=== PATIENT | male | born 1975 | race Caucasian/White ===

== ENCOUNTER → 2016-09-22 | Outpatient (CLI) | payer OTHER ==
--- NOTE | 2016-09-22 12:59 | EST ---
DATE OF SERVICE: 09/22/2016 AGE: 41Y SEX: M HT: 71" WT: 200 lbs. Protocol Ted: X Other: Stress Stage: 2 Dur. of Exercise: 8:00 *Heart Rate Blood Pressure *Rest: 83 Rest: 129/100 * *Max. Achieved: 155 Maximum BP: 201/84 85% PMHR: 150 100% PMHR: 177 *METS: 9.7 INDICATIONS: Palpitations MEDICATIONS: Heart rate meds, aspirin, cholesterol meds. Mr. Crenshaw is a 41-year-old gentleman being evaluated for symptoms of chest pain and palpitations. Patient also has hypertension and hypercholesterolemia. Baseline EKG showed sinus rhythm with normal KS interval and QRS duration. Blood pressure at rest is 129/100 with pulse of 83. Patient walked on the Ted protocol for about 8 minutes, achieving a maximum heart rate of 155 with a blood pressure of 201/84. EKGs taken during and after the exercise did not reveal any significant changes from the baseline. FINAL IMPRESSION: 1. Negative stress test. 2. Good exercise capacity. 3. Patient did not experience any chest pain. 4. No arrhythmias were detected.
== END | disposition home or self-care (01) ==
LOC: RADNMMAIN 10:38
PROVIDERS: ATTEND Internal Medicine
DX: I10 Essential (primary) hypertension (principal); R00.2 Palpitations; Z88.0 Allergy status to penicillin
CPT/HCPCS: 93017

== ENCOUNTER 2020-05-10 05:47 | Emergency (ER) | payer OTHER ==
[2020-05-10 05:52] VITALS: TEMP 97.8
[2020-05-10] MEDS: SODIUM CHLORIDE 0.9% 1,000 ML IV STA (06:11)
[2020-05-10] MEDS: SODIUM CHLORIDE 0.9% 500 ML 500 ML IV STA (06:11)
[2020-05-10 06:15] LABS: Basophils % (A) 0 %; Eosinophils # (A) 0.1 k/uL (0-0.7); Eosinophils % (A) 1 %; HCT 48.1 % (39.0-53.0); HGB 16.8 gm/dL (13.0-17.5); Lymphocytes # (A) 1.4 k/uL (1.0-4.8); Lymphocytes % (A) 10 %; MCH 32.3 pg (25.0-35.0); MCHC 34.9 g/dL (31.0-37.0); MCV 92.7 fL (80.0-100.0); Mean Platelet Volume 7.4; Monocytes # (A) 0.5 k/uL (0-1.0); Monocytes % (A) 3 %; Neutrophils # (A) 12.3 k/uL (1.3-7.7); Neutrophils % (A) 85 %; Platelet Count 234 k/uL (150-450); RBC 5.19 m/uL (4.30-5.90); RDW 13.1 % (11.5-15.5); WBC 14.4 k/uL (3.8-10.6)
[2020-05-10] MEDS: ONDANSETRON 4 MG/2 ML VIAL IVP STA (06:22)
[2020-05-10] MEDS: KETOROLAC 15 MG/ML 1 ML VIAL IVP STA (06:22)
[2020-05-10 06:26] LABS: ALT 75 U/L (4-49); AST 34 U/L (17-59); African American GFR (CKD) >90 (>60 ml/min/1.73 sqM); Albumin 4.6 g/dL (3.5-5.0); Alkaline Phosphatase 69 U/L (38-126); Anion Gap 8 mmol/L; Blood Urea Nitrogen 12 mg/dL (9-20); Calcium 9.4 mg/dL (8.4-10.2); Carbon Dioxide 24 mmol/L (22-30); Chloride 107 mmol/L (98-107); Glucose 180 mg/dL (74-99); Lipase 47 U/L (23-300); Non-African American GFR(CKD) 84 (>60 ml/min/1.73 sqM); Potassium 4.3 mmol/L (3.5-5.1); Sodium 139 mmol/L (137-145); Total Bilirubin 0.6 mg/dL (0.2-1.3); Total Protein 7.4 g/dL (6.3-8.2)
--- NOTE | 2020-05-10 06:30 | XR ---
EXAMINATION TYPE: XR KUB DATE OF EXAM: 05/10/2020 6:19 AM CLINICAL HISTORY: History of kidney stones with right flank pain and nausea. TECHNIQUE: Two Upright KUB images of the abdomen are obtained. COMPARISON: None. FINDINGS: Some paucity of bowel gas. Scattered gas seen in nondistended bowel loops. There is no visc eromegaly, pneumoperitoneum, or abnormal calcification appreciated. The lung bases are clear. Slight underlying scoliotic curvature or positioning. IMPRESSION: Overall nonobstructive bowel gas pattern. No definite nephrolithiasis.
--- NOTE | 2020-05-10 06:35 | ED ---
Abdominal Pain HPI - General Source: patient, RN notes reviewed Mode of arrival: ambulatory Limitations: no limitations <Harpreet Freeman - Last Filed: 05/10/20 08:08> <Hillary Gallagher - Last Filed: 05/11/20 13:19> - General Chief Complaint: Abdominal Pain Stated Complaint: R flank pain Time Seen by Provider: 05/10/20 05:56 - History of Present Illness Initial Comments: This a 45-year-old male presents emergency Department for abdominal pain. Patient states started initially morning. Patient states that he woke up with lower abdominal pain felt like he had have a bowel movement. Patient's is very crampy in nature. Patient states he does feel constipated this time. Patient now is localized to right-sided flank pain. Patient has had some chills no fever. Patient has ongoing nausea with no significant vomiting dysuria, hematuria or frequency. Patient has no chest pain or shortness breath. No prior abdominal surgeries. (Harpreet Freeman) - Related Data Previous Rx's Medication Instructions Recorded Ketorolac [Toradol] 10 mg PO Q8HR #15 tab 05/10/20 Ondansetron Odt [Zofran Odt] 4 mg PO Q8HR PRN #10 tab 05/10/20 Tamsulosin [Flomax] 0.4 mg PO DAILY #7 cap 05/10/20 Allergies Allergy/AdvReac Type Severity Reaction Status Date / Time Penicillins Allergy Rash/Hives Verified 05/10/20 05:52 Review of Systems ROS Other: All systems not noted in ROS Statement are negative. <Harpreet Freeman - Last Filed: 05/10/20 08:08> ROS Other: All systems not noted in ROS Statement are negative. <Hillary Gallagher - Last Filed: 05/11/20 13:19> ROS Statement: Those systems with pertinent positive or pertinent negative responses have been documented in the HPI. Past Medical History Past Medical History: Hypertension Additional Past Medical History / Comment(s): kidney stones History of Any Multi-Drug Resistant Organisms: None Reported Past Surgical History: Appendectomy Past Psychological History: No Psychological Hx Reported Smoking Status: Never smoker Past Alcohol Use History: None Reported Past Drug Use History: None Reported <Harpreet Freeman - Last Filed: 05/10/20 08:08> General Exam Limitations: no limitations General appearance: alert, in no apparent distress Head exam: Present: atraumatic, normocephalic, normal inspection Eye exam: Present: normal appearance, PERRL, EOMI. Absent: scleral icterus, conjunctival injection, periorbital swelling ENT exam: Present: normal exam, normal oropharynx, mucous membranes moist Neck exam: Present: normal inspection, full ROM. Absent: tenderness, meningismus, lymphadenopathy Respiratory exam: Present: normal lung sounds bilaterally. Absent: respiratory distress, wheezes, rales, rhonchi, stridor Cardiovascular Exam: Present: regular rate, normal rhythm, normal heart sounds. Absent: systolic murmur, diastolic murmur, rubs, gallop, clicks GI/Abdominal exam: Present: soft, normal bowel sounds. Absent: distended, tenderness, guarding, rebound, rigid Back exam: Present: CVA tenderness (R). Absent: CVA tenderness (L) Neurological exam: Present: alert, oriented X3 Skin exam: Present: warm, dry, intact, normal color. Absent: rash <Harpreet Freeman - Last Filed: 05/10/20 08:08> Course Vital Signs 05/10/20 05/10/20 05:47 07:41 Temperature 97.8 F Pulse Rate 61 66 Respiratory 22 18 Rate Blood Pressure 190/98 174/84 O2 Sat by Pulse 97 99 Oximetry Medical Decision Making - Lab Data Result diagrams: 05/10/20 06:10 05/10/20 06:10 <Harpreet Freeman - Last Filed: 05/10/20 08:08> - Lab Data Result diagrams: 05/10/20 06:10 05/10/20 06:10 <Hillary Gallagher - Last Filed: 05/11/20 13:19> - Medical Decision Making 45-year-old male presented for flank pain, abdominal pain CT shows evidence of proximal 4 mm right ureteral calculi stone. Patient has no signs of infection in his urinalysis. Patient pain is improved patient was well-hydrated. Patient we discharged in stable condition return parameters were discussed. (Harpreet Freeman) I was available for consultation in the emergency department. The history and physical exam were done by the midlevel provider. I was consulted for this patients care. I reviewed the case with the midlevel provider and based on their presentation of the patient, I agree with the assessment, medical decision making and plan of care as documented. Chart was dictated using [employer] dictation software. Attempts were made to correct any dictation errors however some typographical errors may persist. Patient was seen during a national state of emergency due to the Covid-19 pandemic. (Hillary Gallagher) - Lab Data Lab Results 05/10/20 05/10/20 05/10/20 Range/Units 06:10 06:10 07:47 WBC 14.4 H (3.8-10.6) k/uL RBC 5.19 (4.30-5.90) m/uL Hgb 16.8 (13.0-17.5) gm/dL Hct 48.1 (39.0-53.0) % MCV 92.7 (80.0-100.0) fL MCH 32.3 (25.0-35.0) pg MCHC 34.9 (31.0-37.0) g/dL RDW 13.1 (11.5-15.5) % Plt Count 234 (150-450) k/uL MPV 7.4 Neutrophils % 85 % Lymphocytes % 10 % Monocytes % 3 % Eosinophils % 1 % Basophils % 0 % Neutrophils # 12.3 H (1.3-7.7) k/uL Lymphocytes # 1.4 (1.0-4.8) k/uL Monocytes # 0.5 (0-1.0) k/uL Eosinophils # 0.1 (0-0.7) k/uL Basophils # 0.0 (0-0.2) k/uL Sodium 139 (137-145) mmol/L Potassium 4.3 (3.5-5.1) mmol/L Chloride 107 (98-107) mmol/L Carbon Dioxide 24 (22-30) mmol/L Anion Gap 8 mmol/L BUN 12 (9-20) mg/dL Creatinine 1.06 (0.66-1.25) mg/dL Est GFR (CKD-EPI)AfAm >90 (>60 ml/min/1.73 sqM) Est GFR (CKD-EPI)NonAf 84 (>60 ml/min/1.73 sqM) Glucose 180 H (74-99) mg/dL Calcium 9.4 (8.4-10.2) mg/dL Total Bilirubin 0.6 (0.2-1.3) mg/dL AST 34 (17-59) U/L ALT 75 H (4-49) U/L Alkaline Phosphatase 69 (38-126) U/L Total Protein 7.4 (6.3-8.2) g/dL Albumin 4.6 (3.5-5.0) g/dL Lipase 47 (23-300) U/L Urine Color Yellow Urine Appearance Clear (Clear) Urine pH 5.5 (5.0-8.0) Ur Specific [place] 1.032 (1.001-1.035) Urine Protein Negative (Negative) Urine Glucose (UA) Negative (Negative) Urine Ketones Negative (Negative) Urine Blood Negative (Negative) Urine Nitrite Negative (Negative) Urine Bilirubin Negative (Negative) Urine Urobilinogen <2.0 (<2.0) mg/dL Ur Leukocyte Esterase Negative (Negative) Disposition Is patient prescribed a controlled substance at d/c from ED?: No <Harpreet Freeman M - Last Filed: 05/10/20 08:08> <Hillary Gallagher - Last Filed: 05/11/20 13:19> Clinical Impression: Right ureteral calculus Disposition: HOME SELF-CARE Condition: Stable Instructions (If sedation given, give patient instructions): Kidney Stones (ED) Additional Instructions: Please return to the Emergency Department if symptoms worsen or any other concerns. Prescriptions: Tamsulosin [Flomax] 0.4 mg PO DAILY #7 cap Ketorolac [Toradol] 10 mg PO Q8HR #15 tab Ondansetron Odt [Zofran Odt] 4 mg PO Q8HR PRN #10 tab PRN Reason: Nausea Referrals: Juana Son MD [Primary Care Provider] - 1-2 days Camilo Munoz MD [STAFF PHYSICIAN] - 1-2 days
[2020-05-10 07:43] VITALS: BP 174/84; PULSE 66; RESP 18
[2020-05-10] MEDS: HYDROmorphone 0.5 MG/0.5 ML SYRINGE IVP STA (07:44)
--- NOTE | 2020-05-10 07:46 | CT ---
EXAMINATION TYPE: CT abdomen pelvis w con DATE OF EXAM: 05/10/2020 COMPARISON: Abdominal x-ray earlier today HISTORY: Right sided flank pain, history of kidney stones. CT DLP: 1680.4 mGycm, Automated Exposure Control for Dose Reduction was Utilized. CONTRAST: CT scan of the abdomen and pelvis is performed without oral but with IV Contrast, patient injected wi th 100 mL of Isovue 300. FINDINGS: LUNG BASES: Some dependent atelectasis. LIVER/GB: Visualized liver is low dense consistent with diffuse fatty infiltration. PANCREAS: No significant abnormality is seen. SPLEEN: No significant abnormality is seen. ADRENALS: No significant abnormality is seen. KIDNEYS: There are symmetric cortical medullary uptake but delayed excretion from the right kidney. T here are 2 left-sided renal calculi measuring under 3 mm in size no left-sided hydronephrosis. There is single 2 to 3 mm calculus right kidney coronal image 52 mid to lower pole level anteriorly. There is mild right-sided pyelocaliectasis due to obstructing 4 mm proximal right ureter calculus axial dereje ge 51. No intraluminal calculi in the bladder. [id number] surrounding perinephric fluid is nons pecific finding BOWEL: Small bowel feces sign and terminal ileum. No suspicious small bowel dilatation. Findings cons istent with delayed passage of ingested material to colonic level. PROSTATE/SEMINAL VESICLES: No gross abnormality seen. LYMPH NODES: No greater than 1cm abdominal or pelvic lymph nodes are appreciated. OSSEOUS STRUCTURES: No significant abnormality is seen. OTHER: Moderate mixed plaque in the aorta extends into branch vessels. IMPRESSION: There is 4 mm calculus in proximal right ureter causing mild right-sided hydronephrosis a nd delayed excretion.
[2020-05-10 07:59] LABS: Appearance,Urine Clear (Clear); Bilirubin,Urine Negative (Negative); Blood,Urine Negative (Negative); Color,Urine Yellow; Glucose,Urine (UA) Negative (Negative); Ketones,Urine Negative (Negative); Leukocyte Esterase,Urine Negative (Negative); Nitrite,Urine Negative (Negative); PH, Urine 5.5 (5.0-8.0); Protein,Urine Negative (Negative); Specific Gravity,Urine 1.032 (1.001-1.035); Urobilinogen,Urine <2.0 mg/dL (<2.0)
[2020-05-10] MEDS: ACET/COD 300 MG/30 MG STARTER PACK 6 TAB BTL PO STA (08:15)
[2020-05-10] MEDS: TAMSULOSIN 0.4 MG CAP.ER.24H PO STA (08:15)
== END 2020-05-10 08:21 | disposition home or self-care (01) ==
LOC: EC 05:47
DX: N20.1 Calculus of ureter (principal); Z88.0 Allergy status to penicillin; Z90.49 Acquired absence of other specified parts of digestive tract
CPT/HCPCS: 36415; 80053; 83690; 85025; 81003; 74018; 74177; 99284; 96374; 96375 ×2; 96361 ×2; J2405; J1885; J1170; Q9967

== ENCOUNTER 2020-05-13 15:49 | Emergency (ER) | payer OTHER ==
[2020-05-13 15:56] VITALS: RESP 18
[2020-05-13] MEDS ORDERED: SODIUM CHLORIDE 0.9% 1,000 ML IV STA (17:03)
--- NOTE | 2020-05-13 17:04 | ED ---
Abdominal Pain HPI - General Chief Complaint: Abdominal Pain Stated Complaint: revisit - kidney stones Time Seen by Provider: 05/13/20 17:03 Source: patient Mode of arrival: ambulatory Limitations: no limitations - History of Present Illness Initial Comments: 45-year-old male with history of recurrent kidney stones presenting to the emergency department with a chief complaint of a kidney stone. Patient states 4 days ago he was diagnosed with a 4 mm kidney stone on a computed tomography scan. Patient states she was discharged with Tylenol 3, as well as Flomax and Zofran. Patient reports he was advised to come to the emergency department if his symptoms did not improve. Patient reports continued symptoms and his right flank region. Denies any hematuria, medication melena. However, he does report abdominal bloating. States he has not had a bowel movement in about 3 days. Does report some nausea but no vomiting. He is yet to follow up with a urologist. - Related Data Previous Rx's Medication Instructions Recorded Ketorolac [Toradol] 10 mg PO Q8HR #15 tab 05/10/20 Ondansetron Odt [Zofran Odt] 4 mg PO Q8HR PRN #10 tab 05/10/20 Tamsulosin [Flomax] 0.4 mg PO DAILY #7 cap 05/10/20 Allergies Allergy/AdvReac Type Severity Reaction Status Date / Time Penicillins Allergy Rash/Hives Verified 05/13/20 15:56 Review of Systems ROS Statement: Those systems with pertinent positive or pertinent negative responses have been documented in the HPI. ROS Other: All systems not noted in ROS Statement are negative. Past Medical History Past Medical History: Hypertension Additional Past Medical History / Comment(s): kidney stones History of Any Multi-Drug Resistant Organisms: None Reported Past Surgical History: Appendectomy Past Psychological History: No Psychological Hx Reported Smoking Status: Never smoker Past Alcohol Use History: None Reported Past Drug Use History: None Reported General Exam Limitations: no limitations General appearance: alert, in no apparent distress Head exam: Present: atraumatic, normocephalic, normal inspection Eye exam: Present: normal appearance, PERRL, EOMI Pupils: Present: normal accommodation ENT exam: Present: normal exam, normal oropharynx, mucous membranes moist, TM's normal bilaterally, normal external ear exam Neck exam: Present: normal inspection, full ROM. Absent: tenderness Respiratory exam: Present: normal lung sounds bilaterally. Absent: respiratory distress, wheezes, rales Cardiovascular Exam: Present: regular rate, normal rhythm, normal heart sounds GI/Abdominal exam: Present: soft, distended. Absent: tenderness, guarding, rebound, rigid, hyperactive bowel sounds Extremities exam: Present: normal inspection, full ROM, normal capillary refill. Absent: tenderness, pedal edema, joint swelling Back exam: Present: normal inspection, full ROM, tenderness, CVA tenderness (R) Neurological exam: Present: alert, oriented X3, normal gait Psychiatric exam: Present: normal affect, normal mood Skin exam: Present: warm, dry, intact, normal color Course Vital Signs 05/13/20 15:53 Temperature 98.6 F Pulse Rate 88 Respiratory 18 Rate Blood Pressure 159/85 O2 Sat by Pulse 99 Oximetry - Reevaluation(s) Reevaluation #1: 05/13/20 18:18 Medical Records reviewed Medical Decision Making - Medical Decision Making 45-year-old male presenting to emergency Department with a chief complaint of a kidney stone. On physical examination, mild abdominal distention which I s uspect is secondary to the constipation from taking narcotics. Patient was given magnesium citrate in the emergency department. He was advised to take only half, finished the rest of it at home if he does not have a bowel movement in the first 4-6 hours. Advised to start taking stool softeners. CT abdomen and pelvis 4 days ago reveals a 4 mm right-sided obstructing kidney stone. Patient was given IV fluids, antiemetics and analgesia in emergency department. On reevaluation, patient reports improvement in symptoms. KUB shows no signs of small bowel obstruction and is otherwise unremarkable. CBC reveals leukocytosis 14.2 K. CMP reveals elevation in creatinine from 1.02 to 1.53 and a 4 day period. Patient advised on the importance of seeing a urologist. He was advised to drink plenty of fluids. He was advised to eat a high-fiber diet. Return parameters thoroughly discussed the patient is an ascending agreeable. Case discussed with physician. - Lab Data Result diagrams: 05/13/20 17:17 05/13/20 17:17 Lab Results 05/13/20 05/13/20 05/13/20 Range/Units 17:17 17:17 17:17 WBC 14.2 H (3.8-10.6) k/uL RBC 4.97 (4.30-5.90) m/uL Hgb 16.4 (13.0-17.5) gm/dL Hct 45.5 (39.0-53.0) % MCV 91.6 (80.0-100.0) fL MCH 33.0 (25.0-35.0) pg MCHC 36.0 (31.0-37.0) g/dL RDW 12.2 (11.5-15.5) % Plt Count 234 (150-450) k/uL MPV 7.6 Neutrophils % 83 % Lymphocytes % 9 % Monocytes % 5 % Eosinophils % 0 % Basophils % 1 % Neutrophils # 11.7 H (1.3-7.7) k/uL Lymphocytes # 1.3 (1.0-4.8) k/uL Monocytes # 0.7 (0-1.0) k/uL Eosinophils # 0.1 (0-0.7) k/uL Basophils # 0.2 (0-0.2) k/uL Sodium 135 L (137-145) mmol/L Potassium 4.1 (3.5-5.1) mmol/L Chloride 101 (98-107) mmol/L Carbon Dioxide 24 (22-30) mmol/L Anion Gap 10 mmol/L BUN 20 (9-20) mg/dL Creatinine 1.53 H (0.66-1.25) mg/dL Est GFR (CKD-EPI)AfAm 62 (>60 ml/min/1.73 sqM) Est GFR (CKD-EPI)NonAf 53 (>60 ml/min/1.73 sqM) Glucose 107 H (74-99) mg/dL Calcium 9.3 (8.4-10.2) mg/dL Total Bilirubin 1.1 (0.2-1.3) mg/dL AST 41 (17-59) U/L ALT 80 H (4-49) U/L Alkaline Phosphatase 80 (38-126) U/L Total Protein 7.4 (6.3-8.2) g/dL Albumin 4.2 (3.5-5.0) g/dL Lipase 18 L (23-300) U/L Urine Color Yellow Urine Appearance Clear (Clear) Urine pH 5.5 (5.0-8.0) Ur Specific [place] 1.025 (1.001-1.035) Urine Protein Trace H (Negative) Urine Glucose (UA) Negative (Negative) Urine Ketones 2+ H (Negative) Urine Blood Trace H (Negative) Urine Nitrite Negative (Negative) Urine Bilirubin Negative (Negative) Urine Urobilinogen <2.0 (<2.0) mg/dL Ur Leukocyte Esterase Negative (Negative) Urine RBC 4 (0-5) /hpf Urine WBC 4 (0-5) /hpf Urine Mucus Rare H (None) /hpf Disposition Clinical Impression: Flank pain, Right ureteral calculus Disposition: HOME SELF-CARE Condition: Stable Instructions (If sedation given, give patient instructions): Abdominal Pain (ED) Additional Instructions: Take prescribed medication as directed. Follow-up with urology. Start taking a daily stool softener. Return to emergency department if symptoms worsen. Is patient prescribed a controlled substance at d/c from ED?: No Referrals: Juana Son MD [Primary Care Provider] - 1-2 days Jon Schuster MD [STAFF PHYSICIAN] - 1-2 days Time of Disposition: 18:22
[2020-05-13 17:27] LABS: Basophils # (A) 0.2 k/uL (0-0.2); Basophils % (A) 1 %; Eosinophils # (A) 0.1 k/uL (0-0.7); Eosinophils % (A) 0 %; HCT 45.5 % (39.0-53.0); HGB 16.4 gm/dL (13.0-17.5); Lymphocytes # (A) 1.3 k/uL (1.0-4.8); Lymphocytes % (A) 9 %; MCV 91.6 fL (80.0-100.0); Mean Platelet Volume 7.6; Monocytes # (A) 0.7 k/uL (0-1.0); Monocytes % (A) 5 %; Neutrophils # (A) 11.7 k/uL (1.3-7.7); Neutrophils % (A) 83 %; Platelet Count 234 k/uL (150-450); RBC 4.97 m/uL (4.30-5.90); RDW 12.2 % (11.5-15.5); WBC 14.2 k/uL (3.8-10.6)
[2020-05-13] MEDS ORDERED: KETOROLAC 15 MG/ML 1 ML VIAL IVP STA (17:32)
[2020-05-13 17:34] LABS: Appearance,Urine Clear (Clear); Bilirubin,Urine Negative (Negative); Blood,Urine Trace (Negative); Color,Urine Yellow; Glucose,Urine (UA) Negative (Negative); Ketones,Urine 2+ (Negative); Leukocyte Esterase,Urine Negative (Negative); Mucus,Urine Rare /hpf; Nitrite,Urine Negative (Negative); PH, Urine 5.5 (5.0-8.0); Protein,Urine Trace (Negative); RBC,Urine 4 /hpf (0-5); Specific Gravity,Urine 1.025 (1.001-1.035); Urobilinogen,Urine <2.0 mg/dL (<2.0); WBC,Urine 4 /hpf (0-5)
[2020-05-13 17:37] LABS: Albumin 4.2 g/dL (3.5-5.0); Calcium 9.3 mg/dL (8.4-10.2); Potassium 4.1 mmol/L (3.5-5.1); Total Bilirubin 1.1 mg/dL (0.2-1.3); Total Protein 7.4 g/dL (6.3-8.2)
[2020-05-13] MEDS ORDERED: PANTOPRAZOLE 40 MG/10 ML VIAL IVP STA (17:39)
[2020-05-13] MEDS ORDERED: MAGNESIUM CITRATE 296 ML BOTTLE PO ONE (17:39)
[2020-05-13] MEDS ORDERED: ONDANSETRON 4 MG/2 ML VIAL IVP STA (17:39)
--- NOTE | 2020-05-13 18:03 | XR ---
EXAMINATION TYPE: XR KUB DATE OF EXAM: 05/13/2020 COMPARISON: NONE HISTORY: Flank pain. Constipation abdominal pain TECHNIQUE: 2 views upright FINDINGS: There is no sign of intestinal obstruction or pneumoperitoneum. Fecal pattern is normal. Th ere is no sign of a mass. There are no pathologic calcifications over the kidneys. IMPRESSION: Nonacute abdomen. No change.
[2020-05-13] MEDS ORDERED: ACET/COD 300 MG/30 MG STARTER PACK 6 TAB BTL PO STA (18:17)
[2020-05-13 18:50] VITALS: BP 163/90; PULSE 89; TEMP 98.5
== END 2020-05-13 18:50 | disposition home or self-care (01) ==
LOC: EC 15:49
DX: N20.1 Calculus of ureter (principal); Z88.0 Allergy status to penicillin; Z90.49 Acquired absence of other specified parts of digestive tract
CPT/HCPCS: 36415; 80053; 83690; 85025; 81001; 74018; 99284; 96374; 96375 ×2; 96361; J2405; J1885; C9113